=== PATIENT | male | born 2000 | race Hispanic/Latino ===

== ENCOUNTER → 2023-10-30 | Day surgery (SDC) | payer OTHER ==
[~2023-10-30] MED LIST: BENAZEPRIL HCL10 MG PO; BENZTROPINE MESY1 MG PO; DIVALPROEX SOD500 MG PO; LIDOCAINE HCL 2% LOCAL INJ 5 ML SDV VIAL INJ ONE; PROPOFOL IV EMULSION 10 MG/ML 20 ML VIAL ONE; PROTONIX20 MG PO; RISPERIDONE0.5 MG PO; TRAZODONE HCL50 MG PO
[2023-10-30] MEDS: LACTATED RINGER'S 1,000 ML ONE (12:14)
[2023-10-30 14:46] VITALS: BP 122/74; PULSE 76; RESP 17; O2SAT 96
== END | disposition home or self-care (01) ==
LOC: ENDO 11:52
PROVIDERS: ATTEND Internal Medicine Gastroenterology
DX: K62.6 Ulcer of anus and rectum (principal); K63.5 Polyp of colon; K62.89 Other specified diseases of anus and rectum; K59.04 Chronic idiopathic constipation; K21.9 Gastro-esophageal reflux disease without esophagitis; K44.9 Diaphragmatic hernia without obstruction or gangrene; R79.89 Other specified abnormal findings of blood chemistry; G80.9 Cerebral palsy, unspecified; F90.9 Attention-deficit hyperactivity disorder, unspecified type; Z79.899 Other long term (current) drug therapy; Z68.30 Body mass index [BMI] 30.0-30.9, adult; Z80.0 Family history of malignant neoplasm of digestive organs
CPT/HCPCS: 45331; 45338; 88305; J2001; J2704; J7121; 45330